=== PATIENT | male | born 1970 | race Caucasian/White ===

== ENCOUNTER 2017-05-29 13:31 | Emergency (ER) | payer MEDICARE ==
[2017-05-29 14:06] VITALS: BP 160/38; O2SAT 98
[2017-05-29] MEDS ORDERED: DEMEROL 50 MG IM ONE (14:54)
[2017-05-29] MEDS ORDERED: Phenergan 25 MG INJ IM ONE (14:54)
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
[2017-05-29] MEDS ORDERED: DEMEROL 50 MG ONE (15:14)
[2017-05-29] MEDS ORDERED: Phenergan 25 MG INJ ONE (15:14)
[2017-05-29 15:43] VITALS: PULSE 75
== END 2017-05-29 15:46 | disposition home or self-care (01) ==
LOC: ED 13:31
DX: S40.211A Abrasion of right shoulder, initial encounter (principal); S50.311A Abrasion of right elbow, initial encounter; S50.811A Abrasion of right forearm, initial encounter; W19.XXXS Unspecified fall, sequela; G89.29 Other chronic pain
CPT/HCPCS: 96372; 99284; J2175; J2550